=== PATIENT | male | born 1950 | race Caucasian/White ===

== ENCOUNTER 2020-06-23 09:52 | Observation (INO) ==
[2020-06-23 11:08] LABS: Basophils % 0.1 %; Hematocrit 40.5 % (37.5-50.1); Hemoglobin 13.4 g/dL (12.9-16.9); Immature Granulocytes % 0.4 % (0-4); Lymphocytes # 0.5 K/mcL (0.6-4.6); Lymphocytes % 5.6 %; Mean Corpuscular HGB Conc 33.1 g/dL (31.6-35.5); Mean Corpuscular Hemoglobin 28.2 pg (28.0-33.3); Mean Corpuscular Volume 85.1 fL (83.0-100.0); Mean Platelet Volume 12.1 fL (9.4-12.4); Monocytes # 0.4 K/mcL (0.0-1.3); Monocytes % 4.1 %; Neutrophils # 8.2 K/mcL (1.6-8.9); Platelet Count 124 K/mcL (140-400); Red Blood Count 4.76 M/mcL (4.19-5.50); Red Cell Distribution Width 13.9 % (11.5-14.5); Segmented Neutrophils % 89.8 %; White Blood Count 9.1 K/mcL (4.3-11.1)
[2020-06-23 11:30] LABS: Phosphorous 2.1 mg/dL (2.7-4.5)
[2020-06-23 11:34] LABS: Alanine Aminotransferase 26 Units/L (7-52); Albumin 3.9 g/dL (3.5-5.7); Albumin/Globulin Ratio 1.3 (1.1-2.2); Alkaline Phosphatase 114 Units/L (34-104); Aspartate Amino Transferase 33 Units/L (13-39); BUN/Creatinine Ratio 16 (6-26); Bilirubin,Total 0.6 mg/dL (0.3-1.0); Blood Urea Nitrogen 14 mg/dL (8-23); Calcium 8.3 mg/dL (8.6-10.3); Carbon Dioxide 27 mEq/L (23-29); Chloride 98 mEq/L (98-107); Glucose 106 mg/dL (70-105); INR 1.4; Osmolality,Calculated 283 (280-300); Potassium 3.3 mEq/L (3.5-5.1); Prothrombin Time 16.2 Seconds (9.4-12.1); Sodium 136 mEq/L (136-145); Total Protein 6.9 g/dL (6.4-8.9); Troponin I < 0.03 ng/mL (< 0.04); eGFR For African Americans > 60 (> 60); eGFR For Non-African Americans > 60 (> 60)
[2020-06-23 11:36] LABS: Activated Partial Thrombo Time 29.6 Seconds (26.0-36.0)
[2020-06-23] MEDS ORDERED: Ondansetron 4 MG/2 ML VIAL IVP PRN (13:01)
[2020-06-23] MEDS ORDERED: Acetaminophen 325 MG TABLET PO PRN (13:01)
[2020-06-23] MEDS ORDERED: Potassium Phosphate 44 MEQ in 0.9 % Sodium Chloride 250 ML IVPB ONE (13:02)
[2020-06-23 13:05] LABS: Bilirubin,Urine Negative (Negative); Blood,Urine Negative (Negative); Clarity,Urine Clear (Clear); Color,Urine Yellow (Yellow); Glucose,Urine (UA) Normal (Normal); Hyaline Casts,Urine Few per lpf (None Seen); Ketones,Urine 40 mg/dL (Negative); Leukocyte Esterase,Urine Small (Negative); Mucus,Urine Moderate per lpf (None-Few); Nitrite,Urine Negative (Negative); Protein,Urine 200 mg/dL (Neg-Trace); RBC,Urine 0-3 per hpf (0-3); Specific Gravity,Urine > 1.030 (1.010-1.025); Squamous Epithelial Cell,Urine Few per hpf (None-Few); Urobilinogen,Urine Normal (Normal)
[2020-06-23] MEDS ORDERED: 0.9 % Sodium Chloride 500 ML IVC ONE (13:15)
[2020-06-23] MEDS ORDERED: Aspirin 325 MG TABLET PO SCH (20:00)
[2020-06-23] MEDS: lisinopriL 10 MG TABLET PO SCH (20:14)
[2020-06-23] MEDS: Aspirin 325 MG TABLET PO SCH (20:57)
[2020-06-24] MEDS ORDERED: *HR* Enoxaparin 40 MG/0.4 ML SYRINGE SQ SCH (06:00)
[2020-06-24 08:55] LABS: BUN/Creatinine Ratio 24 (6-26); Blood Urea Nitrogen 19 mg/dL (8-23); Calcium 8.5 mg/dL (8.6-10.3); Carbon Dioxide 26 mEq/L (23-29); Chloride 100 mEq/L (98-107); Glucose 132 mg/dL (70-105); Magnesium 2.3 mg/dL (1.6-2.6); Osmolality,Calculated 288 (280-300); Phosphorous 3.3 mg/dL (2.7-4.5); Potassium 3.6 mEq/L (3.5-5.1); Sodium 137 mEq/L (136-145); eGFR For African Americans > 60 (> 60); eGFR For Non-African Americans > 60 (> 60)
[2020-06-24] MEDS: lisinopriL 10 MG TABLET PO SCH ×2 (09:17→11:05)
[2020-06-24] MEDS: Aspirin 325 MG TABLET PO SCH ×3 (09:20→11:05)
[2020-06-24 11:13] VITALS: BP 117/75
[2020-06-24] MEDS ORDERED: lisinopriL 10 MG TABLET PO SCH (21:00)
[2020-06-24] MEDS ORDERED: Aspirin 325 MG TABLET PO SCH (21:00)
== END 2020-06-24 18:15 | disposition home health service (06) ==
LOC: 2NENU 09:52 → EMEROOARM 09:52 → SUATTDRO 13:03 → 2NENU 14:54
PROVIDERS: ADMIT Internal Medicine; ATTEND Family Medicine

== ENCOUNTER 2020-06-27 09:45 | Inpatient (IN) ==
[2020-06-27] MEDS ORDERED: cefTRIAXone 1,000 MG in Water for inj. (sterile) 10 ML IVP ONE (10:26)
[2020-06-27] MEDS ORDERED: Azithromycin 500 MG in 0.9 % Sodium Chloride 250 ML IVPB ONE (10:26)
[2020-06-27 10:27] LABS: Basophils % 0.1 %; Hematocrit 42.4 % (37.5-50.1); Hemoglobin 13.6 g/dL (12.9-16.9); Immature Granulocytes % 0.9 % (0-4); Lymphocytes # 0.5 K/mcL (0.6-4.6); Lymphocytes % 3.6 %; Mean Corpuscular HGB Conc 32.1 g/dL (31.6-35.5); Mean Corpuscular Hemoglobin 28.3 pg (28.0-33.3); Mean Corpuscular Volume 88.3 fL (83.0-100.0); Mean Platelet Volume 11.9 fL (9.4-12.4); Monocytes # 0.6 K/mcL (0.0-1.3); Monocytes % 3.8 %; Neutrophils # 13.5 K/mcL (1.6-8.9); Platelet Count 201 K/mcL (140-400); Segmented Neutrophils % 91.6 %
[2020-06-27 10:29] LABS: White Blood Count 14.7 K/mcL (4.3-11.1)
[2020-06-27 10:30] LABS: INR 1.4; Prothrombin Time 16.2 Seconds (9.4-12.1)
[2020-06-27 10:32] LABS: Activated Partial Thrombo Time 22.9 Seconds (26.0-36.0)
[2020-06-27 10:38] LABS: Bilirubin,Urine Negative (Negative); Blood,Urine Negative (Negative); Clarity,Urine Clear (Clear); Color,Urine Light-Yellow (Yellow); Glucose,Urine (UA) Normal (Normal); Hyaline Casts,Urine Few per lpf (None Seen); Ketones,Urine Negative (Negative); Leukocyte Esterase,Urine Negative (Negative); Nitrite,Urine Negative (Negative); Protein,Urine 70 mg/dL (Neg-Trace); RBC,Urine 0-3 per hpf (0-3); Specific Gravity,Urine 1.029 (1.010-1.025); Squamous Epithelial Cell,Urine Few per hpf (None-Few); Urobilinogen,Urine Normal (Normal); WBC,Urine 0-3 per hpf (0-3)
[2020-06-27 11:04] LABS: Alanine Aminotransferase 63 Units/L (7-52); Albumin 3.6 g/dL (3.5-5.7); Albumin/Globulin Ratio 1.1 (1.1-2.2); Alkaline Phosphatase 102 Units/L (34-104); Aspartate Amino Transferase 59 Units/L (13-39); BUN/Creatinine Ratio 32 (6-26); Bilirubin,Indirect 0.5 mg/dL (0.0-1.0); Bilirubin,Total 0.5 mg/dL (0.3-1.0); Blood Urea Nitrogen 20 mg/dL (8-23); C-Reactive Protein 32 mg/L (Less than 10); Calcium 8.7 mg/dL (8.6-10.3); Carbon Dioxide 25 mEq/L (23-29); Chloride 102 mEq/L (98-107); Ferritin 308 ng/mL (20-250); Globulin 3.2 g/dL (2.4-3.5); Glucose 148 mg/dL (70-105); Lactate Dehydrogenase 402 Units/L (140-271); Magnesium 2.3 mg/dL (1.6-2.6); Osmolality,Calculated 291 (280-300); Phosphorous 2.9 mg/dL (2.7-4.5); Potassium 3.9 mEq/L (3.5-5.1); Sodium 138 mEq/L (136-145); Total Protein 6.8 g/dL (6.4-8.9); Troponin I < 0.03 ng/mL (< 0.04); eGFR For African Americans > 60 (> 60); eGFR For Non-African Americans > 60 (> 60)
[2020-06-27] MEDS ORDERED: Isovue-370 500 ML BOTTLE IVP ONE (11:12)
[2020-06-27] MEDS ORDERED: Ondansetron 4 MG/2 ML VIAL IVP PRN (11:18)
[2020-06-27] MEDS ORDERED: Acetaminophen 325 MG TABLET PO PRN (11:18)
[2020-06-27] MEDS ORDERED: Ringers Solution, Lactated 500 ML IVC ONE (17:03)
[2020-06-28] MEDS: *HR* Enoxaparin 40 MG/0.4 ML SYRINGE SQ SCH (05:11)
[2020-06-28 05:22] LABS: Hematocrit 39.2 % (37.5-50.1); Mean Corpuscular HGB Conc 33.2 g/dL (31.6-35.5); Mean Corpuscular Hemoglobin 28.7 pg (28.0-33.3); Mean Corpuscular Volume 86.5 fL (83.0-100.0); Mean Platelet Volume 11.7 fL (9.4-12.4); Platelet Count 205 K/mcL (140-400); Red Blood Count 4.53 M/mcL (4.19-5.50); Red Cell Distribution Width 13.8 % (11.5-14.5); White Blood Count 10.7 K/mcL (4.3-11.1)
[2020-06-28 05:40] LABS: BUN/Creatinine Ratio 31 (6-26); Blood Urea Nitrogen 22 mg/dL (8-23); Calcium 8.5 mg/dL (8.6-10.3); Carbon Dioxide 26 mEq/L (23-29); Chloride 103 mEq/L (98-107); Glucose 148 mg/dL (70-105); Magnesium 2.3 mg/dL (1.6-2.6); Osmolality,Calculated 292 (280-300); Potassium 3.6 mEq/L (3.5-5.1); Sodium 138 mEq/L (136-145); eGFR For African Americans > 60 (> 60); eGFR For Non-African Americans > 60 (> 60)
[2020-06-28] MEDS: Finasteride 5 MG TABLET PO SCH (08:25)
[2020-06-28] MEDS: lisinopriL 10 MG TABLET PO SCH (08:25)
[2020-06-28] MEDS: cefTRIAXone 1,000 MG in Water for inj. (sterile) 10 ML IVP SCH (08:26)
[2020-06-28] MEDS ORDERED: Aspirin 325 MG TABLET PO SCH (09:00)
[2020-06-29] MEDS: *HR* Enoxaparin 40 MG/0.4 ML SYRINGE SQ SCH (06:10)
[2020-06-29] MEDS: Aspirin Enteric Coated 81 MG Tablet PO SCH (08:41)
[2020-06-29] MEDS: cefTRIAXone 1,000 MG in Water for inj. (sterile) 10 ML IVP SCH (08:41)
[2020-06-29] MEDS: Finasteride 5 MG TABLET PO SCH (08:41)
[2020-06-29] MEDS: lisinopriL 10 MG TABLET PO SCH (08:41)
[2020-06-30 03:24] LABS: Hematocrit 39.5 % (37.5-50.1); Hemoglobin 13.1 g/dL (12.9-16.9); Mean Corpuscular HGB Conc 33.2 g/dL (31.6-35.5); Mean Corpuscular Hemoglobin 28.9 pg (28.0-33.3); Mean Platelet Volume 11.8 fL (9.4-12.4); Platelet Count 234 K/mcL (140-400); Red Blood Count 4.54 M/mcL (4.19-5.50); White Blood Count 11.8 K/mcL (4.3-11.1)
[2020-06-30 03:45] LABS: BUN/Creatinine Ratio 42 (6-26); Blood Urea Nitrogen 32 mg/dL (8-23); Calcium 8.4 mg/dL (8.6-10.3); Carbon Dioxide 26 mEq/L (23-29); Chloride 102 mEq/L (98-107); Glucose 154 mg/dL (70-105); Magnesium 2.5 mg/dL (1.6-2.6); Osmolality,Calculated 296 (280-300); Potassium 4.1 mEq/L (3.5-5.1); Sodium 138 mEq/L (136-145); eGFR For African Americans > 60 (> 60); eGFR For Non-African Americans > 60 (> 60)
[2020-06-30] MEDS: *HR* Enoxaparin 40 MG/0.4 ML SYRINGE SQ SCH (06:02)
[2020-06-30] MEDS: Aspirin Enteric Coated 81 MG Tablet PO SCH (08:30)
[2020-06-30] MEDS: lisinopriL 10 MG TABLET PO SCH (08:30)
[2020-06-30] MEDS: Finasteride 5 MG TABLET PO SCH (08:31)
[2020-06-30] MEDS: cefTRIAXone 1,000 MG in Water for inj. (sterile) 10 ML IVP SCH (08:31)
[2020-07-01] MEDS: *HR* Enoxaparin 40 MG/0.4 ML SYRINGE SQ SCH (05:27)
[2020-07-01] MEDS: Aspirin Enteric Coated 81 MG Tablet PO SCH (07:49)
[2020-07-01] MEDS: lisinopriL 10 MG TABLET PO SCH (07:50)
[2020-07-01] MEDS: Finasteride 5 MG TABLET PO SCH (07:50)
[2020-07-01] MEDS: cefTRIAXone 1,000 MG in Water for inj. (sterile) 10 ML IVP SCH (07:51)
[2020-07-02] MEDS: *HR* Enoxaparin 40 MG/0.4 ML SYRINGE SQ SCH (05:14)
[2020-07-02 05:32] LABS: Hematocrit 41.7 % (37.5-50.1); Hemoglobin 13.7 g/dL (12.9-16.9); Mean Corpuscular HGB Conc 32.9 g/dL (31.6-35.5); Mean Corpuscular Hemoglobin 28.4 pg (28.0-33.3); Mean Corpuscular Volume 86.3 fL (83.0-100.0); Mean Platelet Volume 11.8 fL (9.4-12.4); Platelet Count 218 K/mcL (140-400); Red Blood Count 4.83 M/mcL (4.19-5.50); Red Cell Distribution Width 13.9 % (11.5-14.5); White Blood Count 15.1 K/mcL (4.3-11.1)
[2020-07-02 05:52] LABS: BUN/Creatinine Ratio 44 (6-26); Blood Urea Nitrogen 33 mg/dL (8-23); Calcium 8.4 mg/dL (8.6-10.3); Carbon Dioxide 27 mEq/L (23-29); Chloride 103 mEq/L (98-107); Glucose 144 mg/dL (70-105); Magnesium 2.6 mg/dL (1.6-2.6); Osmolality,Calculated 300 (280-300); Potassium 4.1 mEq/L (3.5-5.1); Sodium 140 mEq/L (136-145); eGFR For African Americans > 60 (> 60); eGFR For Non-African Americans > 60 (> 60)
[2020-07-02] MEDS: Dexamethasone Sodium Phos/PF 10 MG/ML VIAL IVP SCH (10:01)
[2020-07-02] MEDS: Aspirin Enteric Coated 81 MG Tablet PO SCH (10:01)
[2020-07-02] MEDS: Finasteride 5 MG TABLET PO SCH (10:01)
[2020-07-02] MEDS: lisinopriL 10 MG TABLET PO SCH (10:01)
[2020-07-03] MEDS: *HR* Enoxaparin 40 MG/0.4 ML SYRINGE SQ SCH (05:09)
[2020-07-03] MEDS: lisinopriL 10 MG TABLET PO SCH (09:02)
[2020-07-03] MEDS: Aspirin Enteric Coated 81 MG Tablet PO SCH (09:03)
[2020-07-03] MEDS: Dexamethasone Sodium Phos/PF 10 MG/ML VIAL IVP SCH (09:03)
[2020-07-03] MEDS: Finasteride 5 MG TABLET PO SCH (09:03)
[2020-07-04 06:01] LABS: Hematocrit 41.6 % (37.5-50.1); Hemoglobin 13.8 g/dL (12.9-16.9); Mean Corpuscular HGB Conc 33.2 g/dL (31.6-35.5); Mean Corpuscular Hemoglobin 28.3 pg (28.0-33.3); Mean Corpuscular Volume 85.4 fL (83.0-100.0); Mean Platelet Volume 11.7 fL (9.4-12.4); Platelet Count 182 K/mcL (140-400); Red Blood Count 4.87 M/mcL (4.19-5.50); Red Cell Distribution Width 13.8 % (11.5-14.5); White Blood Count 15.9 K/mcL (4.3-11.1)
[2020-07-04 06:26] LABS: BUN/Creatinine Ratio 48 (6-26); Blood Urea Nitrogen 34 mg/dL (8-23); Calcium 8.3 mg/dL (8.6-10.3); Carbon Dioxide 25 mEq/L (23-29); Chloride 104 mEq/L (98-107); Glucose 122 mg/dL (70-105); Magnesium 2.5 mg/dL (1.6-2.6); Osmolality,Calculated 293 (280-300); Potassium 4.3 mEq/L (3.5-5.1); Sodium 137 mEq/L (136-145); eGFR For African Americans > 60 (> 60); eGFR For Non-African Americans > 60 (> 60)
[2020-07-04] MEDS: lisinopriL 10 MG TABLET PO SCH (10:03)
[2020-07-04] MEDS: Finasteride 5 MG TABLET PO SCH (10:03)
[2020-07-04] MEDS: Aspirin Enteric Coated 81 MG Tablet PO SCH (10:03)
[2020-07-04] MEDS: Dexamethasone Sodium Phos/PF 10 MG/ML VIAL IVP SCH (10:04)
[2020-07-04] MEDS: Furosemide 20 MG/2 ML VIAL IVP SCH ×2 (12:38→17:34)
[2020-07-04] MEDS: *HR* Enoxaparin 40 MG/0.4 ML SYRINGE SQ SCH (21:34)
[2020-07-05] MEDS: *HR* Enoxaparin 40 MG/0.4 ML SYRINGE SQ SCH (05:21)
[2020-07-05 07:44] LABS: Basophils % 0.1 %; Hematocrit 41.2 % (37.5-50.1); Immature Granulocytes % 0.8 % (0-4); Lymphocytes # 0.3 K/mcL (0.6-4.6); Mean Corpuscular Volume 85.3 fL (83.0-100.0); Mean Platelet Volume 11.9 fL (9.4-12.4); Monocytes # 0.9 K/mcL (0.0-1.3); Monocytes % 5.2 %; Neutrophils # 15.5 K/mcL (1.6-8.9); Platelet Count 156 K/mcL (140-400); Red Blood Count 4.83 M/mcL (4.19-5.50); Red Cell Distribution Width 13.7 % (11.5-14.5); Segmented Neutrophils % 91.9 %; White Blood Count 16.8 K/mcL (4.3-11.1)
[2020-07-05] MEDS: Furosemide 20 MG/2 ML VIAL IVP SCH ×2 (09:31→16:25)
[2020-07-05] MEDS: Dexamethasone Sodium Phos/PF 10 MG/ML VIAL IVP SCH (09:31)
[2020-07-05] MEDS: Finasteride 5 MG TABLET PO SCH (09:32)
[2020-07-05] MEDS: Aspirin Enteric Coated 81 MG Tablet PO SCH (09:32)
[2020-07-05 10:12] LABS: BUN/Creatinine Ratio 47 (6-26); Blood Urea Nitrogen 37 mg/dL (8-23); Calcium 8.7 mg/dL (8.6-10.3); Carbon Dioxide 20 mEq/L (23-29); Chloride 102 mEq/L (98-107); Glucose 107 mg/dL (70-105); Osmolality,Calculated 289 (280-300); Potassium 4.2 mEq/L (3.5-5.1); Sodium 135 mEq/L (136-145); eGFR For African Americans > 60 (> 60); eGFR For Non-African Americans > 60 (> 60)
[2020-07-06] MEDS: *HR* Enoxaparin 40 MG/0.4 ML SYRINGE SQ SCH (06:18)
[2020-07-06 07:47] LABS: Hematocrit 46.8 % (37.5-50.1); Mean Corpuscular HGB Conc 33.3 g/dL (31.6-35.5); Mean Platelet Volume 12.5 fL (9.4-12.4); Platelet Count 148 K/mcL (140-400); Red Blood Count 5.57 M/mcL (4.19-5.50); Red Cell Distribution Width 14.1 % (11.5-14.5); White Blood Count 21.5 K/mcL (4.3-11.1)
[2020-07-06 07:58] LABS: Hemoglobin 15.6 g/dL (12.9-16.9)
[2020-07-06 08:04] LABS: BUN/Creatinine Ratio 51 (6-26); Blood Urea Nitrogen 46 mg/dL (8-23); Calcium 8.5 mg/dL (8.6-10.3); Carbon Dioxide 23 mEq/L (23-29); Chloride 102 mEq/L (98-107); Glucose 116 mg/dL (70-105); Osmolality,Calculated 295 (280-300); Potassium 4.3 mEq/L (3.5-5.1); Sodium 136 mEq/L (136-145); eGFR For African Americans > 60 (> 60); eGFR For Non-African Americans > 60 (> 60)
[2020-07-06] MEDS ORDERED: lisinopriL 5 MG TABLET PO SCH (09:00)
[2020-07-06] MEDS: Aspirin Enteric Coated 81 MG Tablet PO SCH (09:19)
[2020-07-06] MEDS: Finasteride 5 MG TABLET PO SCH (09:22)
[2020-07-06] MEDS: Furosemide 20 MG/2 ML VIAL IVP SCH (09:25)
[2020-07-06] MEDS: Dexamethasone Sodium Phos/PF 10 MG/ML VIAL IVP SCH (09:26)
[2020-07-06] MEDS ORDERED: traZODone 50 MG TABLET PO SCH (21:00)
[2020-07-06] MEDS: Melatonin 3 MG TABLET PO SCH (21:19)
[2020-07-07] MEDS: *HR* Enoxaparin 40 MG/0.4 ML SYRINGE SQ SCH (05:37)
[2020-07-07 06:48] LABS: Hematocrit 42.9 % (37.5-50.1); Hemoglobin 14.4 g/dL (12.9-16.9); Mean Corpuscular HGB Conc 33.6 g/dL (31.6-35.5); Mean Corpuscular Volume 86.3 fL (83.0-100.0); Mean Platelet Volume 12.4 fL (9.4-12.4); Platelet Count 122 K/mcL (140-400); Red Blood Count 4.97 M/mcL (4.19-5.50); Red Cell Distribution Width 13.7 % (11.5-14.5); White Blood Count 15.4 K/mcL (4.3-11.1)
[2020-07-07 07:15] LABS: BUN/Creatinine Ratio 52 (6-26); Blood Urea Nitrogen 43 mg/dL (8-23); Calcium 8.2 mg/dL (8.6-10.3); Carbon Dioxide 26 mEq/L (23-29); Chloride 100 mEq/L (98-107); Glucose 112 mg/dL (70-105); Osmolality,Calculated 290 (280-300); Potassium 4.3 mEq/L (3.5-5.1); Sodium 134 mEq/L (136-145); eGFR For African Americans > 60 (> 60); eGFR For Non-African Americans > 60 (> 60)
[2020-07-07] MEDS: Furosemide 20 MG TABLET PO SCH (08:15)
[2020-07-07] MEDS: Aspirin Enteric Coated 81 MG Tablet PO SCH (08:15)
[2020-07-07] MEDS: Finasteride 5 MG TABLET PO SCH (08:15)
[2020-07-07] MEDS ORDERED: Isovue-370 500 ML BOTTLE IVP ONE (12:46)
[2020-07-07] MEDS: Melatonin 3 MG TABLET PO SCH (20:25)
[2020-07-08] MEDS: *HR* Enoxaparin 40 MG/0.4 ML SYRINGE SQ SCH (05:26)
[2020-07-08 07:56] LABS: Hematocrit 41.8 % (37.5-50.1); Hemoglobin 13.9 g/dL (12.9-16.9); Immature Platelets 19.8 % (1.1-6.1); Mean Corpuscular HGB Conc 33.3 g/dL (31.6-35.5); Mean Corpuscular Hemoglobin 28.2 pg (28.0-33.3); Mean Corpuscular Volume 84.8 fL (83.0-100.0); Mean Platelet Volume 12.7 fL (9.4-12.4); Red Blood Count 4.93 M/mcL (4.19-5.50); Red Cell Distribution Width 13.9 % (11.5-14.5); White Blood Count 9.7 K/mcL (4.3-11.1)
[2020-07-08 08:17] LABS: BUN/Creatinine Ratio 54 (6-26); Blood Urea Nitrogen 39 mg/dL (8-23); Calcium 8.4 mg/dL (8.6-10.3); Carbon Dioxide 23 mEq/L (23-29); Chloride 102 mEq/L (98-107); Glucose 123 mg/dL (70-105); Osmolality,Calculated 293 (280-300); Potassium 4.4 mEq/L (3.5-5.1); Sodium 136 mEq/L (136-145); eGFR For African Americans > 60 (> 60); eGFR For Non-African Americans > 60 (> 60)
[2020-07-08] MEDS: Furosemide 20 MG TABLET PO SCH (08:27)
[2020-07-08] MEDS: Cholecalciferol (D-3) 1,000 UNIT (25MCG) TABLET PO SCH (08:28)
[2020-07-08] MEDS: Aspirin Enteric Coated 81 MG Tablet PO SCH (08:28)
[2020-07-08] MEDS: Finasteride 5 MG TABLET PO SCH (08:28)
[2020-07-08] MEDS ORDERED: traZODone 50 MG TABLET PO SCH (21:00)
[2020-07-08] MEDS: Melatonin 3 MG TABLET PO SCH (23:58)
[2020-07-09] MEDS: Melatonin 3 MG TABLET PO SCH ×2 (02:19→20:21)
[2020-07-09 04:51] LABS: Red Cell Distribution Width 13.6 % (11.5-14.5)
[2020-07-09 04:53] LABS: Hematocrit 41.3 % (37.5-50.1); Hemoglobin 13.9 g/dL (12.9-16.9); Mean Corpuscular HGB Conc 33.7 g/dL (31.6-35.5); Mean Corpuscular Hemoglobin 28.7 pg (28.0-33.3); Mean Corpuscular Volume 85.3 fL (83.0-100.0); Mean Platelet Volume 12.9 fL (9.4-12.4); Red Blood Count 4.84 M/mcL (4.19-5.50); White Blood Count 12.3 K/mcL (4.3-11.1)
[2020-07-09 05:12] LABS: BUN/Creatinine Ratio 45 (6-26); Blood Urea Nitrogen 39 mg/dL (8-23); Calcium 8.2 mg/dL (8.6-10.3); Carbon Dioxide 25 mEq/L (23-29); Chloride 100 mEq/L (98-107); Glucose 133 mg/dL (70-105); Osmolality,Calculated 285 (280-300); Potassium 4.5 mEq/L (3.5-5.1); Sodium 132 mEq/L (136-145); eGFR For African Americans > 60 (> 60); eGFR For Non-African Americans > 60 (> 60)
[2020-07-09] MEDS: *HR* Enoxaparin 40 MG/0.4 ML SYRINGE SQ SCH (05:25)
[2020-07-09] MEDS: Furosemide 20 MG TABLET PO SCH (09:43)
[2020-07-09] MEDS: Aspirin Enteric Coated 81 MG Tablet PO SCH (09:43)
[2020-07-09] MEDS: Cholecalciferol (D-3) 1,000 UNIT (25MCG) TABLET PO SCH (09:44)
[2020-07-09] MEDS: Finasteride 5 MG TABLET PO SCH (09:44)
[2020-07-09] MEDS: traZODone 50 MG TABLET PO SCH (20:21)
[2020-07-10 06:07] LABS: Hematocrit 41.9 % (37.5-50.1); Hemoglobin 14.1 g/dL (12.9-16.9); Immature Platelets 21.1 % (1.1-6.1); Mean Corpuscular HGB Conc 33.7 g/dL (31.6-35.5); Mean Corpuscular Hemoglobin 28.3 pg (28.0-33.3); Mean Corpuscular Volume 84.1 fL (83.0-100.0); Mean Platelet Volume 13.1 fL (9.4-12.4); Red Blood Count 4.98 M/mcL (4.19-5.50); Red Cell Distribution Width 13.7 % (11.5-14.5); White Blood Count 13.2 K/mcL (4.3-11.1)
[2020-07-10 06:26] LABS: BUN/Creatinine Ratio 41 (6-26); Blood Urea Nitrogen 36 mg/dL (8-23); Calcium 8.4 mg/dL (8.6-10.3); Carbon Dioxide 23 mEq/L (23-29); Chloride 98 mEq/L (98-107); Glucose 129 mg/dL (70-105); Osmolality,Calculated 282 (280-300); Potassium 4.4 mEq/L (3.5-5.1); Sodium 131 mEq/L (136-145); eGFR For African Americans > 60 (> 60); eGFR For Non-African Americans > 60 (> 60)
[2020-07-10] MEDS: *HR* Enoxaparin 40 MG/0.4 ML SYRINGE SQ SCH (06:29)
[2020-07-10] MEDS: Aspirin Enteric Coated 81 MG Tablet PO SCH (09:17)
[2020-07-10] MEDS: Finasteride 5 MG TABLET PO SCH (09:18)
[2020-07-10] MEDS: Furosemide 20 MG TABLET PO SCH (09:18)
[2020-07-10] MEDS: Cholecalciferol (D-3) 1,000 UNIT (25MCG) TABLET PO SCH (09:18)
[2020-07-10] MEDS: Melatonin 3 MG TABLET PO SCH (19:34)
[2020-07-10] MEDS: traZODone 50 MG TABLET PO SCH (19:34)
[2020-07-11 05:32] LABS: Red Cell Distribution Width 13.7 % (11.5-14.5)
[2020-07-11 05:34] LABS: Hematocrit 44.2 % (37.5-50.1); Hemoglobin 14.6 g/dL (12.9-16.9); Immature Platelets 20.9 % (1.1-6.1); Mean Corpuscular Hemoglobin 28.1 pg (28.0-33.3); Platelet Count 66 K/mcL (140-400); White Blood Count 16.5 K/mcL (4.3-11.1)
[2020-07-11 06:01] LABS: BUN/Creatinine Ratio 43 (6-26); Blood Urea Nitrogen 34 mg/dL (8-23); Calcium 8.1 mg/dL (8.6-10.3); Carbon Dioxide 19 mEq/L (23-29); Chloride 101 mEq/L (98-107); Glucose 119 mg/dL (70-105); Osmolality,Calculated 281 (280-300); Potassium 4.4 mEq/L (3.5-5.1); Sodium 131 mEq/L (136-145); eGFR For African Americans > 60 (> 60); eGFR For Non-African Americans > 60 (> 60)
[2020-07-11] MEDS: *HR* Enoxaparin 40 MG/0.4 ML SYRINGE SQ SCH (06:08)
[2020-07-11] MEDS: Aspirin Enteric Coated 81 MG Tablet PO SCH (08:15)
[2020-07-11] MEDS: Finasteride 5 MG TABLET PO SCH (08:15)
[2020-07-11] MEDS: Cholecalciferol (D-3) 1,000 UNIT (25MCG) TABLET PO SCH (08:15)
[2020-07-11] MEDS: Furosemide 20 MG TABLET PO SCH (08:15)
[2020-07-11] MEDS ORDERED: ALPRAZolam 0.25 MG TABLET PO PRN (13:25)
[2020-07-11] MEDS: Melatonin 3 MG TABLET PO SCH (21:05)
[2020-07-11] MEDS: traZODone 50 MG TABLET PO SCH (21:05)
[2020-07-12] MEDS: *HR* Enoxaparin 40 MG/0.4 ML SYRINGE SQ SCH (06:32)
[2020-07-12] MEDS: Aspirin Enteric Coated 81 MG Tablet PO SCH (08:53)
[2020-07-12] MEDS: Cholecalciferol (D-3) 1,000 UNIT (25MCG) TABLET PO SCH (08:53)
[2020-07-12] MEDS: Finasteride 5 MG TABLET PO SCH (08:53)
[2020-07-12] MEDS ORDERED: Furosemide 20 MG/2 ML VIAL IVP SCH (09:00)
[2020-07-12 10:14] VITALS: BP 148/76
== END 2020-07-12 13:21 | DRG 871 ==
LOC: EMEROOARM 09:45 → 2NENU 12:04 → SUATTDRO 12:04 → 2NENU 13:27
PROVIDERS: ADMIT Internal Medicine; ATTEND Internal Medicine

== ENCOUNTER 2020-07-15 09:28 | Inpatient (IN) ==
[2020-07-15] MEDS ORDERED: Naloxone 0.4 MG/ML INJ IVP PRN (12:34)
[2020-07-15] MEDS ORDERED: Ondansetron 4 MG/2 ML VIAL IVP PRN (12:34)
[2020-07-15] MEDS ORDERED: Ipratropium/Albuterol Neb 3 ML IH PRN (12:38)
[2020-07-15] MEDS ORDERED: GuaiFENesin/Dextromethorphan TABLET PO PRN (12:38)
[2020-07-15] MEDS ORDERED: levoFLOXacin 750 MG/150 ML 750 MG/150 ML BAG IVPB SCH (12:45)
[2020-07-15] MEDS: *HR* Heparin 5,000 UNIT/ML VIAL SQ SCH (18:43)
[2020-07-15] MEDS ORDERED: traZODone 50 MG TABLET PO SCH (21:00)
[2020-07-16 00:34] LABS: Basophils % 0.1 %; Eosinophils % 0.2 %; Hemoglobin 13.2 g/dL (12.9-16.9); Immature Granulocytes % 0.6 % (0-4); Lymphocytes # 0.4 K/mcL (0.6-4.6); Lymphocytes % 2.9 %; Mean Corpuscular HGB Conc 33.8 g/dL (31.6-35.5); Mean Corpuscular Hemoglobin 28.3 pg (28.0-33.3); Mean Corpuscular Volume 83.5 fL (83.0-100.0); Mean Platelet Volume 10.9 fL (9.4-12.4); Monocytes # 0.3 K/mcL (0.0-1.3); Monocytes % 2.6 %; Neutrophils # 11.6 K/mcL (1.6-8.9); Red Blood Count 4.67 M/mcL (4.19-5.50); Red Cell Distribution Width 14.2 % (11.5-14.5); Segmented Neutrophils % 93.6 %; White Blood Count 12.4 K/mcL (4.3-11.1)
[2020-07-16 00:35] LABS: Platelet Count 50 K/mcL (140-400)
[2020-07-16 00:37] LABS: INR 1.2; Prothrombin Time 13.3 Seconds (9.4-12.1)
[2020-07-16 00:40] LABS: Activated Partial Thrombo Time 22.1 Seconds (26.0-36.0)
[2020-07-16 00:52] LABS: Alanine Aminotransferase 117 Units/L (7-52); Albumin 2.7 g/dL (3.5-5.7); Albumin/Globulin Ratio 1.1 (1.1-2.2); Alkaline Phosphatase 100 Units/L (34-104); Aspartate Amino Transferase 53 Units/L (13-39); BUN/Creatinine Ratio 28 (6-26); Bilirubin,Total 0.7 mg/dL (0.3-1.0); Blood Urea Nitrogen 20 mg/dL (8-23); Calcium 7.9 mg/dL (8.6-10.3); Carbon Dioxide 24 mEq/L (23-29); Chloride 104 mEq/L (98-107); Globulin 2.4 g/dL (2.4-3.5); Glucose 90 mg/dL (70-105); Magnesium 2.1 mg/dL (1.6-2.6); Osmolality,Calculated 284 (280-300); Phosphorous 3.1 mg/dL (2.7-4.5); Potassium 4.3 mEq/L (3.5-5.1); Sodium 136 mEq/L (136-145); Total Protein 5.1 g/dL (6.4-8.9); eGFR For African Americans > 60 (> 60); eGFR For Non-African Americans > 60 (> 60)
[2020-07-16] MEDS ORDERED: *HR* Heparin 5,000 UNIT/ML VIAL IVP ONE (01:08)
[2020-07-16] MEDS ORDERED: *HR* Heparin 5,000 UNIT/ML VIAL IVP PRN ×2 (01:08)
[2020-07-16] MEDS ORDERED: Perflutren Lipid Microsphere 1.3 ML in 0.9 % Sodium Chloride 8.7 ML IVP PRN (01:10)
[2020-07-16 01:20] LABS: ABG Base Excess 1 mEq/L (-2 to 3); ABG HCO3 23 mEq/L (21-27); ABG Oxygen Saturation 86 % (95-98); ABG PCO2 28 mmHg (35-45); ABG PH 7.53 pH Units (7.32-7.45); ABG PO2 44 mmHg (85-104); ABG TCO2 24 mEq/L (20-26)
[2020-07-16 01:43] LABS: Thyroid Stimulating Hormone 0.146 mcIU/mL (0.340-5.600)
[2020-07-16] MEDS ORDERED: Furosemide 40 MG/4 ML VIAL ONE (01:45)
[2020-07-16] MEDS ORDERED: Morphine Sulfate 2 MG/ML SYRINGE IVP ONE ×2 (01:46→01:51)
[2020-07-16] MEDS ORDERED: Furosemide 40 MG/4 ML VIAL IVP ONE (01:47)
[2020-07-16] MEDS: FentaNYL (PF) 1,000 MCG/100 ML IV.SOLN IVC SCH ×3 (02:45→18:20)
[2020-07-16] MEDS ORDERED: Vancomycin 1,250 MG/262.5 ML IV.SOLN IVPB SCH (03:00)
[2020-07-16] MEDS ORDERED: Azithromycin 500 MG in 0.9 % Sodium Chloride 250 ML IVPB SCH (03:00)
[2020-07-16] MEDS ORDERED: Dexmedetomidine HCl 400 MCG/100 ML MLS IVC ONE (03:31)
[2020-07-16] MEDS ORDERED: Dexmedetomidine HCl 400 MCG/100 ML MLS IVC SCH (03:45)
[2020-07-16] MEDS: Heparin 25,000UNIT/250ML 1/2NS 25,000 UNIT/250 ML IV.SOLN IVC SCH ×2 (04:28→06:02)
[2020-07-16 04:41] LABS: ABG Base Excess 0 mEq/L (-2 to 3); ABG HCO3 24 mEq/L (21-27); ABG Oxygen Saturation 89 % (95-98); ABG PCO2 37 mmHg (35-45); ABG PH 7.41 pH Units (7.32-7.45); ABG PO2 56 mmHg (85-104); ABG TCO2 25 mEq/L (20-26); Blood Gas Modality ASSIST CONTROL; Blood Gas VT 450 cc
[2020-07-16] MEDS ORDERED: *HR* Vecuronium 10 MG VIAL IVP ONE (05:13)
[2020-07-16] MEDS: Norepinephrine 4 MG/254 ML IV.SOLN IVC SCH ×3 (05:21→10:40)
[2020-07-16] MEDS: *HR* Heparin 5,000 UNIT/ML VIAL SQ SCH (05:22)
[2020-07-16] MEDS: Piperacillin/Tazobactam 3.375 GM in 0.9 % Sodium Chloride Mini Bag 100 ML IVPB SCH ×3 (06:27→22:04)
[2020-07-16 06:31] LABS: ABG Base Excess -2 mEq/L (-2 to 3); ABG HCO3 23 mEq/L (21-27); ABG Oxygen Saturation 86 % (95-98); ABG PCO2 40 mmHg (35-45); ABG PH 7.37 pH Units (7.32-7.45); ABG PO2 53 mmHg (85-104); ABG TCO2 24 mEq/L (20-26); Blood Gas Modality ASSIST CONTROL; Blood Gas VT 620 cc
[2020-07-16] MEDS: Cisatracurium 200 MG in 0.9 % Sodium Chloride 180 ML IVC SCH ×3 (06:40→23:48)
[2020-07-16] MEDS ORDERED: 0.9 % Sodium Chloride 1,000 ML ONE (07:09)
[2020-07-16] MEDS ORDERED: Albumin 25% 25gram/100mL 25 GM/100 ML IV.SOLN IVPB ONE (07:46)
[2020-07-16 07:52] LABS: ABG Base Excess -4 mEq/L (-2 to 3); ABG HCO3 25 mEq/L (21-27); ABG Oxygen Saturation 84 % (95-98); ABG PCO2 58 mmHg (35-45); ABG PH 7.24 pH Units (7.32-7.45); ABG PO2 58 mmHg (85-104); ABG TCO2 27 mEq/L (20-26); Blood Gas Modality ASSIST CONTROL; Blood Gas VT 540 cc
[2020-07-16] MEDS ORDERED: Albumin 25% 25gram/100mL 25 GM/100 ML IV.SOLN ONE (08:19)
[2020-07-16] MEDS ORDERED: Albumin Human 5% 12.5 GM/250 ML IV.SOLN ONE (08:20)
[2020-07-16] MEDS: Midazolam HCl 50 MG/100 ML IV.SOLN IVC SCH ×2 (08:24→19:27)
[2020-07-16] MEDS: Albumin Human 5% 12.5 GM/250 ML IV.SOLN IVC SCH ×2 (08:37→09:18)
[2020-07-16] MEDS ORDERED: Dexamethasone 4 MG/ML VIAL IVP SCH (09:00)
[2020-07-16] MEDS ORDERED: Dexamethasone Sodium Phos/PF 10 MG/ML VIAL IVP SCH (09:00)
[2020-07-16] MEDS: Vasopressin 40 UNIT in D5% in Water 100 ML IVC SCH (09:20)
[2020-07-16] MEDS ORDERED: Artificial Tears SOLN 15 ML BOTTLE BOTH EYES PRN (09:52)
[2020-07-16] MEDS: Doxycycline 100 MG in 0.9 % Sodium Chloride Mini Bag 100 ML IVPB SCH ×2 (10:08→20:48)
[2020-07-16] MEDS ORDERED: *HR* Midazolam HCl 5 MG/5 ML VIAL IVP ONE (11:23)
[2020-07-16] MEDS ORDERED: *HR* Midazolam HCl 2 MG/2 ML VIAL IVP ONE (11:23)
[2020-07-16] MEDS ORDERED: *HR* LORazepam 2 MG/ML VIAL IVP ONE (11:23)
[2020-07-16] MEDS ORDERED: *HR* Etomidate 20 MG/10 ML AMPUL IVP ONE (11:23)
[2020-07-16] MEDS: Pantoprazole 40 MG VIAL IVP SCH (11:42)
[2020-07-16] MEDS: Artificial Tears SOLN 15 ML BOTTLE BOTH EYES SCH ×3 (11:42→20:48)
[2020-07-16] MEDS ORDERED: Argatroban 250 MG in 0.9 % Sodium Chloride 250 ML IVC SCH (13:00)
[2020-07-16] MEDS: Hydrocortisone Sodium Succ 100 MG/2 ML VIAL IVP SCH ×2 (13:19→16:30)
[2020-07-16] MEDS: Norepinephrine 8 MG in 0.9 % Sodium Chloride 250 ML IVC SCH ×2 (13:39→19:27)
[2020-07-16 14:49] LABS: Albumin 3.2 g/dL (3.5-5.7); Bilirubin,Direct 0.6 mg/dL (0.0-0.2); Bilirubin,Indirect 0.4 mg/dL (0.0-1.0); Globulin 1.6 g/dL (2.4-3.5); Total Protein 4.8 g/dL (6.4-8.9)
[2020-07-16 16:09] LABS: Hematocrit 32.9 % (37.5-50.1); Hemoglobin 10.8 g/dL (12.9-16.9)
[2020-07-16 18:42] LABS: Hematocrit 33.5 % (37.5-50.1)
[2020-07-16] MEDS: Chlorhexidine Rinse 15 ML MOUTHWASH MM SCH (20:48)
[2020-07-16 21:58] LABS: ABG Base Excess -4 mEq/L (-2 to 3); ABG HCO3 25 mEq/L (21-27); ABG Oxygen Saturation 91 % (95-98); ABG PCO2 60 mmHg (35-45); ABG PH 7.22 pH Units (7.32-7.45); ABG PO2 75 mmHg (85-104); ABG TCO2 26 mEq/L (20-26); Blood Gas VT 540 cc
[2020-07-17] MEDS: Artificial Tears SOLN 15 ML BOTTLE BOTH EYES SCH ×7 (00:05→23:50)
[2020-07-17 00:28] LABS: Hematocrit 29.5 % (37.5-50.1); Hemoglobin 9.7 g/dL (12.9-16.9)
[2020-07-17] MEDS: Midazolam HCl 50 MG/100 ML IV.SOLN IVC SCH ×4 (00:36→22:07)
[2020-07-17] MEDS: FentaNYL (PF) 1,000 MCG/100 ML IV.SOLN IVC SCH ×2 (00:37→05:46)
[2020-07-17] MEDS: Hydrocortisone Sodium Succ 100 MG/2 ML VIAL IVP SCH ×4 (00:38→23:43)
[2020-07-17 01:11] LABS: ABG Base Excess -2 mEq/L (-2 to 3); ABG HCO3 25 mEq/L (21-27); ABG Oxygen Saturation 90 % (95-98); ABG PCO2 52 mmHg (35-45); ABG PH 7.28 pH Units (7.32-7.45); ABG PO2 67 mmHg (85-104); ABG TCO2 26 mEq/L (20-26); Blood Gas VT 540 cc
[2020-07-17 04:10] LABS: ABG Base Excess -3 mEq/L (-2 to 3); ABG HCO3 25 mEq/L (21-27); ABG Oxygen Saturation 87 % (95-98); ABG PCO2 57 mmHg (35-45); ABG PH 7.25 pH Units (7.32-7.45); ABG PO2 63 mmHg (85-104); ABG TCO2 27 mEq/L (20-26); Blood Gas VT 540 cc
[2020-07-17] MEDS: Cisatracurium 200 MG in 0.9 % Sodium Chloride 180 ML IVC SCH ×4 (04:15→21:05)
[2020-07-17 04:24] LABS: Basophils % 0.1 %
[2020-07-17 04:25] LABS: Hematocrit 29.3 % (37.5-50.1); Hemoglobin 9.4 g/dL (12.9-16.9); Immature Granulocytes % 0.9 % (0-4); Immature Platelets 12.5 % (1.1-6.1); Lymphocytes # 0.2 K/mcL (0.6-4.6); Lymphocytes % 2.3 %; Mean Corpuscular HGB Conc 32.1 g/dL (31.6-35.5); Mean Corpuscular Hemoglobin 27.7 pg (28.0-33.3); Mean Corpuscular Volume 86.4 fL (83.0-100.0); Monocytes # 0.3 K/mcL (0.0-1.3); Monocytes % 4.1 %; Neutrophils # 7.3 K/mcL (1.6-8.9); Red Blood Count 3.39 M/mcL (4.19-5.50); Red Cell Distribution Width 14.3 % (11.5-14.5); Segmented Neutrophils % 92.6 %; White Blood Count 7.9 K/mcL (4.3-11.1)
[2020-07-17 04:32] LABS: INR 1.4
[2020-07-17 04:35] LABS: Platelet Count 40 K/mcL (140-400)
[2020-07-17 04:45] LABS: Alanine Aminotransferase 77 Units/L (7-52); Albumin 2.8 g/dL (3.5-5.7); Albumin/Globulin Ratio 1.5 (1.1-2.2); Alkaline Phosphatase 77 Units/L (34-104); Aspartate Amino Transferase 34 Units/L (13-39); BUN/Creatinine Ratio 27 (6-26); Bilirubin,Total 0.7 mg/dL (0.3-1.0); Blood Urea Nitrogen 22 mg/dL (8-23); Calcium 7.6 mg/dL (8.6-10.3); Carbon Dioxide 23 mEq/L (23-29); Chloride 109 mEq/L (98-107); Globulin 1.9 g/dL (2.4-3.5); Glucose 125 mg/dL (70-105); Osmolality,Calculated 295 (280-300); Potassium 4.1 mEq/L (3.5-5.1); Sodium 140 mEq/L (136-145); Total Protein 4.7 g/dL (6.4-8.9); eGFR For African Americans > 60 (> 60); eGFR For Non-African Americans > 60 (> 60)
[2020-07-17 05:07] LABS: Platelet Estimate Marked Decrease (Normal)
[2020-07-17] MEDS: Piperacillin/Tazobactam 3.375 GM in 0.9 % Sodium Chloride Mini Bag 100 ML IVPB SCH ×3 (05:37→22:04)
[2020-07-17] MEDS: Vasopressin 40 UNIT in D5% in Water 100 ML IVC SCH (05:52)
[2020-07-17] MEDS ORDERED: 0.9 % Sodium Chloride 250 ML IVC SCH (06:30)
[2020-07-17 06:54] LABS: Hemoglobin 9.2 g/dL (12.9-16.9)
[2020-07-17 07:49] LABS: ABG Base Excess -2 mEq/L (-2 to 3); ABG HCO3 25 mEq/L (21-27); ABG Oxygen Saturation 87 % (95-98); ABG PCO2 54 mmHg (35-45); ABG PH 7.28 pH Units (7.32-7.45); ABG PO2 61 mmHg (85-104); ABG TCO2 27 mEq/L (20-26); Blood Gas Modality ASSIST CONTROL; Blood Gas VT 540 cc
[2020-07-17 07:49] LABS: Lactate Dehydrogenase 272 Units/L (140-271)
[2020-07-17] MEDS ORDERED: 0.9 % Sodium Chloride 250 ML ONE (08:17)
[2020-07-17] MEDS: Chlorhexidine Rinse 15 ML MOUTHWASH MM SCH ×2 (08:24→20:26)
[2020-07-17] MEDS: Doxycycline 100 MG in 0.9 % Sodium Chloride Mini Bag 100 ML IVPB SCH ×2 (08:24→20:26)
[2020-07-17] MEDS: Pantoprazole 40 MG VIAL IVP SCH (08:25)
[2020-07-17] MEDS ORDERED: Dexamethasone Sodium Phos/PF 10 MG/ML VIAL IVP SCH (09:00)
[2020-07-17] MEDS: FentaNYL (PF) 2,500 MCG/50 ML IV.SOLN IVC SCH ×2 (10:37→22:06)
[2020-07-17] MEDS: Norepinephrine 8 MG in 0.9 % Sodium Chloride 250 ML IVC SCH (15:37)
[2020-07-17 16:46] LABS: Hematocrit 19.4 % (37.5-50.1)
[2020-07-17 16:52] LABS: Hemoglobin 6.4 g/dL (12.9-16.9)
[2020-07-17 17:16] LABS: Hematocrit 25.2 % (37.5-50.1); Hemoglobin 8.3 g/dL (12.9-16.9); Immature Platelets 6.3 % (1.1-6.1); Mean Corpuscular HGB Conc 32.9 g/dL (31.6-35.5); Mean Corpuscular Hemoglobin 28.3 pg (28.0-33.3); Mean Platelet Volume 10.7 fL (9.4-12.4); Red Blood Count 2.93 M/mcL (4.19-5.50); Red Cell Distribution Width 14.6 % (11.5-14.5); White Blood Count 5.8 K/mcL (4.3-11.1)
[2020-07-17 17:19] LABS: Platelet Count 79 K/mcL (140-400)
[2020-07-17 17:34] LABS: Lymphocytes # 0.5 K/mcL (0.6-4.6); Neutrophils # 5.3 K/mcL (1.6-8.9)
[2020-07-17 22:19] LABS: Hematocrit 24.2 % (37.5-50.1); Hemoglobin 8.1 g/dL (12.9-16.9)
[2020-07-18] MEDS: Cisatracurium 200 MG in 0.9 % Sodium Chloride 180 ML IVC SCH (02:49)
[2020-07-18] MEDS: Midazolam HCl 50 MG/100 ML IV.SOLN IVC SCH ×2 (03:18→08:45)
[2020-07-18] MEDS: Artificial Tears SOLN 15 ML BOTTLE BOTH EYES SCH ×2 (04:06→10:04)
[2020-07-18 04:40] LABS: Hematocrit 24.2 % (37.5-50.1); Mean Corpuscular Volume 86.4 fL (83.0-100.0); Red Cell Distribution Width 14.8 % (11.5-14.5)
[2020-07-18 04:42] LABS: Hemoglobin 8.2 g/dL (12.9-16.9); Immature Granulocytes % 2.3 % (0-4); Immature Platelets 5.4 % (1.1-6.1); Lymphocytes # 0.2 K/mcL (0.6-4.6); Lymphocytes % 2.8 %; Mean Corpuscular HGB Conc 33.9 g/dL (31.6-35.5); Mean Corpuscular Hemoglobin 29.3 pg (28.0-33.3); Mean Platelet Volume 11.1 fL (9.4-12.4); Monocytes # 0.3 K/mcL (0.0-1.3); Monocytes % 5.9 %; Neutrophils # 5.1 K/mcL (1.6-8.9); White Blood Count 5.7 K/mcL (4.3-11.1)
[2020-07-18 04:48] LABS: Platelet Count 86 K/mcL (140-400)
[2020-07-18 05:04] LABS: Alanine Aminotransferase 55 Units/L (7-52); Albumin 2.5 g/dL (3.5-5.7); Albumin/Globulin Ratio 1.2 (1.1-2.2); Alkaline Phosphatase 75 Units/L (34-104); Aspartate Amino Transferase 22 Units/L (13-39); BUN/Creatinine Ratio 34 (6-26); Bilirubin,Total 0.5 mg/dL (0.3-1.0); Blood Urea Nitrogen 26 mg/dL (8-23); Calcium 7.7 mg/dL (8.6-10.3); Carbon Dioxide 26 mEq/L (23-29); Chloride 113 mEq/L (98-107); Globulin 2.1 g/dL (2.4-3.5); Glucose 120 mg/dL (70-105); Osmolality,Calculated 304 (280-300); Potassium 3.8 mEq/L (3.5-5.1); Sodium 144 mEq/L (136-145); Total Protein 4.6 g/dL (6.4-8.9); eGFR For African Americans > 60 (> 60); eGFR For Non-African Americans > 60 (> 60)
[2020-07-18 05:05] LABS: Platelet Estimate Decreased (Normal)
[2020-07-18 05:13] LABS: ABG Base Excess -7 mEq/L (-2 to 3); ABG HCO3 17 mEq/L (21-27); ABG Oxygen Saturation 94 % (95-98); ABG PCO2 29 mmHg (35-45); ABG PH 7.38 pH Units (7.32-7.45); ABG PO2 71 mmHg (85-104); ABG TCO2 18 mEq/L (20-26); Blood Gas VT 540 cc
[2020-07-18] MEDS: Piperacillin/Tazobactam 3.375 GM in 0.9 % Sodium Chloride Mini Bag 100 ML IVPB SCH (05:42)
[2020-07-18] MEDS: FentaNYL (PF) 2,500 MCG/50 ML IV.SOLN IVC SCH (07:58)
[2020-07-18] MEDS: Hydrocortisone Sodium Succ 100 MG/2 ML VIAL IVP SCH (10:04)
[2020-07-18] MEDS: Doxycycline 100 MG in 0.9 % Sodium Chloride Mini Bag 100 ML IVPB SCH (10:04)
[2020-07-18] MEDS: Chlorhexidine Rinse 15 ML MOUTHWASH MM SCH (10:05)
[2020-07-18] MEDS: Pantoprazole 40 MG VIAL IVP SCH (10:05)
[2020-07-18] MEDS ORDERED: *HR* LORazepam 2 MG/ML VIAL IVP PRN (11:28)
[2020-07-18] MEDS ORDERED: Haloperidol Lactate 5 MG/ML VIAL IVP PRN (11:31)
[2020-07-18] MEDS ORDERED: *HR* FentaNYL (PF) 100 MCG/2 ML VIAL IVP PRN (11:32)
[2020-07-18] MEDS ORDERED: Atropine 1% Opth Drops 100 DROP/5 ML BOTTLE SL PRN (11:33)
[2020-07-18 13:13] VITALS: BP 164/66
== END 2020-07-18 17:00 | disposition expired | DRG 871 ==
LOC: 2NNU → ICNU 07-16 02:08
PROVIDERS: ADMIT Internal Medicine; ATTEND Internal Medicine